=== PATIENT | male | born 1955 ===

== ENCOUNTER 2022-09-07 13:52 | Outpatient (REF) | payer MEDICAID, SELFPAY ==
--- NOTE | 2022-09-07 14:37 | MHC.AU.HA3 ---
Hearing Instrument Follow-Up- Binaural Date of Visit: 09/07/22 Right Ear: Model Wolf, Color, Serial Number: Beatriz Arita P50-RT SN: [id number] Color: Graphite Rider Basin Finish Operator Tig Welder Repair Warranty: 05/09/2027 Basin Finish Operator Tig Welder Loss and Damage Warranty: 05/09/2027 Battery Size: Rechargeable Clothes Marker/Slim Tube: 0M with retention tail Earmold/Dome/CShell/SlimTip:Small vented dome Type of Wax Guard: CeruShield Dispensed By: [facility] Date of Fitting: January 2022 Left Ear: Wolf, Model, Color, Serial Number: Beatriz Arita P50-RT SN: [id number] Color: Graphite Rider Basin Finish Operator Tig Welder Repair Warranty: 05/09/2027 Basin Finish Operator Tig Welder Loss and Damage Warranty: 05/09/2027 Battery Size: Rechargeable Clothes Marker/Slim Tube: 0M with retention tail Earmold/Dome/CShell/SlimTip: Small vented dome Type of Wax Guard: CeruShield Dispensed By: [facility] Date of Fitting: January 2022 Follow-Up Summary: Umberto was a previous patient at the [facility] at [facility]. He arrived today for routine hearing aid maintenance. His hearing aids were cleaned. Microphones were vacuumed and domes, wax guards, and retention tails were replaced. A listening check demonstrated that the hearing aids are in good working order. Umberto reported that overall the sound quality is good and he has no other concerns with the hearing aids at this time. Data logging showed about 6.5 hours of use per day. Provided one package of wax guards and domes as a courtesy as Umberto reported that his insurance previously covered these supplies. Explained if more supplies are needed in future, he will be responsible for the cost as it is a non-covered service. Quoted $10.00 per package. Recommendations: Hearing instrument maintenance in 6 months, or sooner if needed. Please contact our clinic with any questions or concerns. Diagnosis Code(s): Primary Diagnosis: H90.3 Bilateral Sensorineural Hearing Loss Signature: Provider: Salvador Harris, [facility]
== END 2022-09-07 13:53 | disposition home or self-care (01) ==
LOC: HO.HAP 13:52
PROVIDERS: Visit Provider Otolaryngology
DX: Z46.1 Encounter for fitting and adjustment of hearing aid (principal); H90.3 Sensorineural hearing loss, bilateral
CPT/HCPCS: 92593; 99499

== ENCOUNTER 2023-03-12 13:37 | Outpatient (REF) | payer MEDICARE, MEDICAID, SELFPAY ==
--- NOTE | 2023-03-12 14:25 | MHC.AU.HA3 ---
Hearing Instrument Follow-Up- Binaural Date of Visit: 03/12/23 Right Ear: Model Wolf, Color, Serial Number: Beatriz Arita P50-RT SN: [id number] Color: Graphite Rider Viscosity Inspector Repair Warranty: 05/09/2027 Viscosity Inspector Loss and Damage Warranty: 05/09/2027 Battery Size: Rechargeable Rehabilitation Caseworker/Slim Tube: 0M with retention tail Earmold/Dome/CShell/SlimTip:Small vented dome Type of Wax Guard: CeruShield Dispensed By: [facility] Date of Fitting: January 2022 Left Ear: Wolf, Model, Color, Serial Number: Beatriz Arita P50-RT SN: [id number] Color: Graphite Rider Viscosity Inspector Repair Warranty: 05/09/2027 Viscosity Inspector Loss and Damage Warranty: 05/09/2027 Battery Size: Rechargeable Rehabilitation Caseworker/Slim Tube: 0M with retention tail Earmold/Dome/CShell/SlimTip: Small vented dome Type of Wax Guard: CeruShield Dispensed By: [facility] Date of Fitting: January 2022 Follow-Up Summary: Tumtum returned for routine hearing aid maintenance. Cleaned both hearing aids. Replaced domes, wax guards, and retention tails. Vacuumed microphones. Ran through dehumidifier. A listening check demonstrated that the hearing aids are in good working order. Reinstructed on volume control use at Tumtum's request. He reported that otherwise, the hearing aids are perfect and he has no other concerns at this time. Recommendations: Hearing instrument follow-up or maintenance as needed. Please contact our clinic with any questions or concerns. Diagnosis Code(s): Primary Diagnosis: H90.3 Bilateral Sensorineural Hearing Loss Signature: Provider: Salvador Harris, [facility]
== END 2023-03-12 13:38 | disposition home or self-care (01) ==
LOC: HO.HAP 13:37
PROVIDERS: Visit Provider Otolaryngology
DX: Z46.1 Encounter for fitting and adjustment of hearing aid (principal); H90.3 Sensorineural hearing loss, bilateral
CPT/HCPCS: 92593; 99499